=== PATIENT | female | born 1990 | race African-American/Black ===

== ENCOUNTER → 2023-10-16 14:58 | Outpatient (CLI) | payer OTHER, SELFPAY ==
--- NOTE | 2023-10-16 15:16 | US_ITS ---
PROCEDURE INFORMATION: Exam: US Right Breast, Complete US Left Breast, Complete Exam date and time: 10/16/2023 3:16 PM Age: 33 years old Clinical indication: Breast pain; Bilateral; bilat nipple discharge TECHNIQUE: Imaging protocol: Complete ultrasound of all four quadrants of the right breast and the retroareolar regions, including ultrasound of the axilla when performed. Complete ultrasound of all four quadrants of the left breast and the retroareolar regions, including ultrasound of the axilla when performed. COMPARISON: No relevant prior studies available. FINDINGS: Breast: No solid or cystic lesions. Other findings: Sonographic images of both breasts including the retroareolar regions, all 4 quadrants and the axilla do not demonstrate any solid or cystic masses. No architectural distortion or acoustical shadowing. No skin thickening or axillary adenopathy. IMPRESSION: 1. No sonographic evidence of malignancy. Annual mammographic screening is recommended unless otherwise clinically indicated. 2. Further evaluation of nipple discharge if spontaneous and clear and/or hemorrhagic may be obtained with breast MRI ASSESSMENT: BI-RADS Category 1: Negative
== END ==
PROVIDERS: PCP Nurse Practitioner Family; Visit Provider Nurse Practitioner Family
DX: N64.4 Mastodynia (principal); N64.52 Nipple discharge
CPT/HCPCS: 76641

== ENCOUNTER 2024-08-12 10:00 | Emergency (ER) | payer OTHER, SELFPAY ==
--- NOTE | 2024-08-12 09:58 | ECG_ITS ---
APPROVED REPORT Exam: Resting ECG HR:76 bpm ECG Measurements Heart Rate 76 AXES MD 135 P 81 QRSd 86 QRS -71 QT 351 T 75 QTc 382 Conclusion SINUS RHYTHM LEFT AXIS DEVIATION [QRS AXIS < -30] POSSIBLE RIGHT VENTRICULAR CONDUCTION DELAY [RSR (QR) IN V1/V2] No acute ST changes concerning for ischemia Electronically signed by : CHRISTINE GODOY, 08/12/2024 15:32:14
[2024-08-12 10:07] VITALS: BP 164/100; PULSE 66; RESP 14; TEMP 36.6; O2SAT 100; BMI 24.0
--- NOTE | 2024-08-12 10:09 | XR_ITS ---
FINAL REPORT TECHNIQUE: Chest PA & Lateral CLINICAL HISTORY: chest pain/shortness of breath FINDINGS: 2 views of the chest were performed. The heart size is normal. The mediastinum is within normal limits. There is no acute cardiopulmonary process. There are no pleural effusions. There is no pneumothorax. The bony thorax appears intact. IMPRESSION: No acute cardiopulmonary process. Reviewed, Interpreted and Dictated by Stephen Gilman MD Transcribed by Adrienne Tomlinson Authenticated and [facility]
--- NOTE | 2024-08-12 10:13 | ED_ITS ---
Discharge Plan Disposition Patient Disposition: Home, Self-Care Condition: Good Prescriptions Prescriptions: New pantoprazole 40 mg tablet,delayed release (DR/EC) 40 mg PO DAILY Qty: 30 1RF hydroxyzine HCl 25 mg tablet 25 mg PO Q8H PRN (Reason: anxiety) Qty: 20 0RF Referrals Follow up/Referrals: Cee Pineda APRN [Nurse Practitioner] - See instructions Jose Love DO [Staff Physician] - See instructions Provider,Referral, [Primary Care Provider] - See instructions Activity Restrictions/Add. Instructions Additional Instructions/Restrictions: You were evaluated in the emergency department today. Please pick pack worker your prescriptions. Only take the hydroxyzine as needed for panic attacks and severe anxiety. It can make you sleepy. Do not drive or operate heavy machinery while taking it. Take the other medication for acid reflux daily. Follow-up closely with her primary care provider. We are providing you with information for PCP referral. I also recommend close follow-up with behavioral health Clinical Impressions Clinical Impression: Atypical chest pain Stand Alone Forms Stand Alone Forms: Work/School Release Instructions Patient Instructions: DI for Gastroesophageal Reflux Disease (GERD), DI for Atypical Chest Pain, DI for Anxiety -- Adult Print Language Print Language: Lao Discharge ED Provider: Keysha Banks General Chief Complaint: Chest Pain Stated Complaint: Chest Pain Time Seen by Provider: 08/12/24 10:02 Mode of Arrival: Ambulatory Source of Information: Patient Limitations: No Limitations Description of Symptoms (Recalled from ER Triage Doc. by RN): pt c/o R sided chest pain that radiates into her shoulder. pt states the pain feels like pressure and is a 6/10, this began yesterday. pt also reports having SOA for some time, unsure how long. She also reports a productive cough with clear sputum. History of Present Illness HPI narrative: This patient is a 34-year-old female who reports a history of tobacco use and daily alcohol use presenting to the emergency department for evaluation with concern for chest pain and shortness of breath that been going on for months. She states that the pain has been all over the place and does not stay in 1 specific spot. She notes it is pretty much always there but migrates. Nothing seems to bring it on. Nothing makes it better or worse. She also notes feeling of early satiety and thinking that she might have issues with GERD. She denies any history of blood clots, clotting disorders, recent surgeries or travel, immobilization, calf pain or swelling, or any hormonal medication use she also denies any history of cardiopulmonary issues as far she knows. She got frustrated that the symptoms have been persistent for so long today, and she came in for further evaluation and management. Related Data Previous Rx's ?Medication ?Instructions ?Recorded hydroxyzine HCl 25 mg tablet 25 mg PO Q8H PRN anxiety #20 tabs 08/12/24 pantoprazole 40 mg tablet,delayed 40 mg PO DAILY #30 tabs 08/12/24 release Allergies Allergy/AdvReac Type Severity Reaction Status Date / Time No Known Allergies Allergy Verified 08/12/24 10:12 [facility] Disclaimer: The information contained in this section may have been updated after the patient was seen, as this information can be updated by other users. Social History Smoking Status: Current every day smoker alcohol intake: current current occupational status: employed Travel in the last 8 weeks: None ROS Obtained: Yes All systems reviewed & no additional complaints except as documented Physical Exam General General appearance: alert, in no apparent distress and anxious Head Head exam: atraumatic and normocephalic Eye Eye exam: Present normal appearance, PERRL and EOMI ENT ENT exam: Present normal exam, normal oropharynx, mucous membranes moist and normal external ear exam Neck Neck exam: Present normal inspection, full ROM and trachea midline; Absent tenderness Chest Chest inspection: Present normal inspection and symmetric chest wall rise; Absent tenderness Respiratory Respiratory exam: Present normal lung sounds bilaterally; Absent respiratory distress, wheezes, stridor or accessory muscle use Cardiovascular Cardiovascular exam: Present regular rate and normal rhythm Abdominal Exam Abdominal exam: Present soft; Absent distention, tenderness or guarding Extremities Exam Extremities exam: Present normal inspection, full ROM and normal capillary refill; Absent tenderness or edema Back Exam Back exam: Present normal inspection and full ROM; Absent tenderness Neurological Exam Neurological exam: Present alert, oriented X3, CN II-XII intact and normal gait; Absent motor sensory deficit Psychiatric Psychiatric exam: Present anxious Skin Skin exam: Present warm and dry HEART Score HEART Score HEART Score assessment performed?: Yes History (anamnesis): Slightly suspicious ECG: Normal Age: <45 years Risk factors: 1-2 risk factors Troponin: </= normal limit HEART Score: 1 Critical Care Critical Care Time Critical Care Time: No Medical Decision Making Medical Records Medical records reviewed: Yes I reviewed the patient's medical records. Aris Inquiry Pt receiving controlled substance: No Vital Signs Vital Signs: 08/12/24 10:07 08/12/24 10:31 08/12/24 10:39 Temperature 98 F Temperature Source Oral Pulse Rate 68 72 Pulse Rate [Left] 66 Respiratory Rate 14 Blood Pressure 128/105 H 131/96 H Blood Pressure [Right Arm] 164/100 H Blood Pressure Mean [Right Arm] 121 Blood Pressure Source [Right Arm] Automatic Cuff Blood Pressure Position [Right Arm] Sitting 02 Sat by Pulse Oximetry 100 99 98 Oxygen Delivery Method Room Air Room Air Room Air 08/12/24 11:00 Temperature Temperature Source Pulse Rate 54 L Pulse Rate [Left] Respiratory Rate Blood Pressure 149/98 H Blood Pressure [Right Arm] Blood Pressure Mean [Right Arm] Blood Pressure Source [Right Arm] Blood Pressure Position [Right Arm] 02 Sat by Pulse Oximetry 99 Oxygen Delivery Method Room Air Lab Data Labs: Lab Results 08/12/24 10:04: WBC 7.7, RBC 4.55, Hgb 16.1, Hct 48.4 H, MCV 106.4 H, MCH 35.4 H , MCHC 33.3, RDW 13.3, Plt Count 177, MPV 7.5, Neut % (Auto) 59.7, Lymph % (Auto) 31.6, Dawes % (Auto) 6.6, Eos % (Auto) 1.5, Baso % (Auto) 0.7, Neut # (Auto) 4.6, Lymph # (Auto) 2.4, Dawes # (Auto) 0.5, Eos # (Auto) 0.1, Baso # (Auto) 0.1, Sodium 139, Potassium 4.0, Chloride 108 H, Carbon Dioxide 25, Anion Gap 10.0, BUN 9, Creatinine 0.70, Estimated Creat Clear 114, Estimated GFR 96, Est GFR ( Amer) 116, Glucose 92, Calcium 9.1, Total Bilirubin 0.7, AST 33, ALT 22, Alkaline Phosphatase 39, Troponin I < 0.01, Total Protein 6.6, Albumin 4.2, Globulin 2.4, Albumin/Globulin Ratio 1.8, TSH 1.43, Thyroxine (T4) 6.6, Serum HCG, Qual Negative 08/12/24 10:04 08/12/24 10:04 Response Orders (Tests/Meds): ED MEDICATIONS Discontinued Medications Generic Name Dose Route Start Last Admin Trade Name Freq PRN Reason Stop Dose Admin Belladonna Alkaloids 60 ml 08/12/24 10:09 08/12/24 10:17 Belladonna Alkaloids 60 Ml Ml PO 08/12/24 10:10 60 ml ONCE ONE Administration ORDERS Category Date Time Status CXR 2 view (NOT portable) [XR chest 2V] Stat Exams 08/12/24 10:09 Taken CBC w/Auto Diff [Complete Blood Count Auto Diff] Stat Lab 08/12/24 10:04 Completed CMP [Comprehensive Metabolic Panel] Stat Lab 08/12/24 10:04 Completed HIV (1&2) Antibody Rapid Stat Lab 08/12/24 10:04 Received Hep C Ab with Reflex to RNA Stat Lab 08/12/24 10:04 Received Serum [HCG Qualitative, Serum] Stat Lab 08/12/24 10:04 Completed T4 (Thyroxine) Stat Lab 08/12/24 10:04 Completed TSH [Thyroid Stimulating Hormone] Stat Lab 08/12/24 10:04 Completed Trop I [Troponin I] Stat Lab 08/12/24 10:04 Completed Troponin I Q3H Lab 08/12/24 13:15 Ordered Troponin I Q3H Lab 08/12/24 16:15 Ordered ECG Data Tracing #1: Attestation: I reviewed this ECG and interpreted as documented below: ECG Narrative: Normal sinus rhythm with a ventricular rate of 76 bpm. Left axis deviation. No acute ST changes concerning for ischemia ECG initial impression date: 08/12/24 ECG initial impression time: 10:00 [facility] Narrative Medical Decision Narrative: In summary, this patient is a 34-year-old female presenting to the Emergency Department for evaluation of chest pain and shortness of breath that have been migratory for months. Differential diagnoses considered include but are not limited to GERD, anxiety, ACS, pulmonary embolus, dysrhythmia, thyroid abnormalities, COPD, asthma. Ruling out the most morbid conditions drove assessment. It should be noted patient's history includes tobacco and alcohol use which are not at goal therapy. This complicates all aspects of care by increasing patient's risk for morbidity. On exam, the patient is sitting upright in bed in no acute distress with reassuring vital signs. She is PERC negative for pulmonary embolus. Cardiopulmonary exam is reassuring. she is slightly anxious appearing. Workup included CBC, CMP, troponin, TSH, T4, chest x-ray, EKG. EKG obtained does not demonstrate any acute changes concerning for ischemia or dysrhythmia. I independently interpreted x-ray prior to the radiologist read and noted no acute focal consolidation, pneumothorax, or cardiomegaly. Please see their read for final interpretation. Labs were obtained that demonstrated normal thyroid studies, normal CBC, normal chemistry with negative troponin. On reassessment, patient had good improvement after administration of GI cocktail. Vitals remain reassuring on cardiac telemetry, and I feel he excluded acute life-threatening pathology as the cause of the patient's symptoms. Ultimately, feel she is appropriate for discharge home. Advised that she continue follow-up closely outpatient to get into the bottom of her symptoms, but I did prescribe her pantoprazole for GERD as well as hydroxyzine to have as needed for anxiety, as I feel that this is likely causing her symptoms. She was given strict return precautions and was discharged after all questions were answered.
[2024-08-12 10:16] LABS: Albumin Level 4.2 g/dl (3.5-5.0); Chloride 108 mmol/L (98-107)
[2024-08-12 10:17] LABS: Sodium 139 mmol/L (136-145)
[2024-08-12] MEDS: BELLADONNA ALKALOIDS 60 ML ML PO (10:17)
[2024-08-12 10:19] LABS: Alanine Aminotransferase 22 U/L (12-78); Aspartate Amino Transferase 33 U/L (14-36); Blood Urea Nitrogen 9 mg/dl (7-17); Carbon Dioxide 25 mmol/L (22.0-30.0); Creatinine Clearance Estimated 114 mL/min (50-200); Estimated Glomerular Filt Rate 96 ml/min (>60); GFR (African American) 116 ML/MIN (>60)
[2024-08-12 10:20] LABS: Albumin/Globulin Ratio 1.8 (1.1-1.8); Alkaline Phosphatase 39 U/L (38-126); Bilirubin,Total 0.7 mg/dl (0.2-1.3); Calcium 9.1 mg/dl (8.4-10.2); Globulin 2.4 g/dL (1.3-3.2); Glucose 92 mg/dl (74-100); Total Protein,Serum 6.6 g/dl (6.3-8.2)
[2024-08-12 10:21] LABS: Basophils # 0.1 K/mm3 (0-0.2); Basophils % 0.7 % (0.1-2.0); Eosinophils # 0.1 K/mm3 (0.0-0.4); Eosinophils % 1.5 % (0.1-12.0); Hematocrit 48.4 % (37.0-47.0); Hemoglobin 16.1 g/dL (12.2-16.2); Lymphocytes # 2.4 K/mm3 (0.7-4.5); Lymphocytes % 31.6 % (10-50); Mean Corpuscular HGB Conc 33.3 g/dL (31.8-35.4); Mean Corpuscular Hemoglobin 35.4 pg (27.0-31.2); Mean Corpuscular Volume 106.4 fl (81-99); Mean Platelet Volume 7.5 fl (7.4-10.4); Monocytes # 0.5 K/mm3 (0.1-1.0); Monocytes % 6.6 % (1.7-9.3); Neutrophils # 4.6 K/mm3 (1.8-7.8); Neutrophils % 59.7 % (37.0-80.0); Platelet Count 177 K/mm3 (142-424); Red Blood Count 4.55 M/mm3 (4.20-5.40); Red Cell Distribution Width 13.3 % (11.5-17.5); White Blood Count 7.7 K/mm3 (4.8-10.8)
[2024-08-12 10:31] VITALS: BP 128/105; PULSE 68; O2SAT 99
[2024-08-12 10:33] LABS: Troponin I < 0.01 ng/ml (0.00-0.034)
[2024-08-12 10:37] LABS: T4 (Thyroxine) 6.6 ug/dl (5.53-11.0)
[2024-08-12 10:39] VITALS: BP 131/96; PULSE 72; O2SAT 98
[2024-08-12 10:45] LABS: HCG Qualitative, Serum Negative (Negative)
[2024-08-12 10:51] LABS: Thyroid Stimulating Hormone 1.43 uIU/mL (0.465-4.68)
[2024-08-12 11:00] VITALS: BP 149/98; PULSE 54; O2SAT 99
[2024-08-12 11:31] VITALS: BP 149/98; PULSE 67; RESP 14; TEMP 36.6
[2024-08-12 12:54] LABS: HIV (1&2) Antibody Rapid NONREACTIVE (NONREACTIVE)
[2024-08-13 06:25] LABS: HCV Ab Non Reactive (Non Reactive)
== END 2024-08-12 11:37 | disposition home or self-care (01) ==
PROVIDERS: Emergency Provider Emergency Medicine
DX: R07.9 Chest pain, unspecified (principal); R06.02 Shortness of breath; M25.511 Pain in right shoulder; R05.9 Cough, unspecified; F17.210 Nicotine dependence, cigarettes, uncomplicated; F10.20 Alcohol dependence, uncomplicated; R07.89 Other chest pain
CPT/HCPCS: 71046; 80050; 80053; 84436; 84443; 84484; 84703; 85025; 86803; 87389; 93005; 99284

== ENCOUNTER 2024-10-19 07:41 | Outpatient (CLI) | payer OTHER, SELFPAY ==
[2024-10-19 08:25] VITALS: PULSE 77; PULSE 80
[2024-10-19] MEDS: ALBUTEROL 0.083% 2.5 MG/3 ML NEB IH (08:25)
== END 2024-10-19 23:59 | disposition home or self-care (01) ==
PROVIDERS: PCP Nurse Practitioner Family; Visit Provider Nurse Practitioner Family
DX: R06.00 Dyspnea, unspecified (principal)
CPT/HCPCS: 94060; 94640; J7613

== ENCOUNTER 2025-04-05 11:50 | Emergency (ER) | payer OTHER, SELFPAY ==
[2025-04-05 11:50] VITALS: BP 149/94; PULSE 79; RESP 16; RESP 18; TEMP 36.6; O2SAT 100; BMI 21.6
--- NOTE | 2025-04-05 11:51 | ECG_ITS ---
APPROVED REPORT Exam: Resting ECG HR:76 bpm ECG Measurements Heart Rate 76 AXES PA 136 P 75 QRSd 92 QRS 131 QT 389 T 55 QTc 419 Conclusion Sinus rhythm Incomplete right bundle branch block Electronically signed by : LOPEZ HAYWOOD, 04/06/2025 08:12:56
--- NOTE | 2025-04-05 11:55 | PC.NURSE ---
Patients FSBS is 80.
--- NOTE | 2025-04-05 12:00 | PC.NURSE ---
Pt was at [facility] with her 2 small children, children at bedside, provided coloring books and crayons, mother is trying to find someone to come up to be with them.
--- NOTE | 2025-04-05 12:01 | XR_ITS ---
FINAL REPORT CLINICAL HISTORY: cxr, seizure COMPARISON: 08/12/2024 FINDINGS: Film was obtained in lordotic positioning. The heart size is normal. The mediastinum is normal. There is minimal airspace opacity at the left lung base which could represent a small focus of aspiration. There are no pleural effusions. There is no pneumothorax. There is no osseous abnormality. IMPRESSION: Minimal airspace focus left lung base, question aspiration. Follow-up recommended. Reviewed, Interpreted and Dictated by Stephen Gilman MD Transcribed by Eleanor Bowman Authenticated and [facility]
[2025-04-05 12:10] LABS: Basophils # 0.1 K/mm3 (0-0.2); Basophils % 0.8 % (0.1-2.0); Eosinophils # 0.3 Kmm3 (0.0-0.4); Eosinophils % 2.7 % (0.1-12.0); Hematocrit 48.4 % (37.0-47.0); Hemoglobin 16.7 g/dL (12.2-16.2); Immature Granulocytes # 0.03 10^3uL; Immature Granulocytes % 0.3 %; Lymphocytes # 4.7 K/mm3 (0.7-4.5); Lymphocytes % 40.4 % (10-50); Mean Corpuscular HGB Conc 34.5 g/dL (31.8-35.4); Mean Corpuscular Hemoglobin 34.4 pg (27.0-31.2); Mean Corpuscular Volume 99.6 fl (81-99); Mean Platelet Volume 10.1 fl (7.4-10.4); Monocytes # 1.2 K/mm3 (0.1-1.0); Monocytes % 10.6 % (1.7-9.3); Neutrophils # 5.3 K/mm3 (1.8-7.8); Neutrophils % 45.2 % (37.0-80.0); Nucleated Red Blood Cells # 0 10^3/uL; Nucleated Red Blood Cells % 0 %; Platelet Count 239 K/mm3 (142-424); Red Blood Count 4.86 M/mm3 (4.20-5.40); Red Cell Distribution Width 12.7 % (11.5-17.5); Red Cell Distribution Width-SD 47.2 fL; White Blood Count 11.6 K/mm3 (4.8-10.8)
[2025-04-05 12:13] LABS: Albumin Level 4.2 g/dl (3.5-5.0); Chloride 107 mmol/L (98-107); Potassium 3.5 mmoL/L (3.5-5.1); Sodium 139 mmol/L (136-145)
--- NOTE | 2025-04-05 12:13 | HMH.ITSTN ---
Went to the patients room to do a portable CXR, when asking patient if there was any chance that she could be she said yes. ABEL Ybarra was notified and stated she was going to put in a test before we perform the CXR.
[2025-04-05 12:15] LABS: Alanine Aminotransferase 34 U/L (12-78); Aspartate Amino Transferase 42 U/L (14-36); Blood Urea Nitrogen 6 mg/dl (7-17); Creatinine Clearance Estimated 92 mL/min (50-200); Estimated Glomerular Filt Rate 82 ml/min (>60); GFR (African American) 99 ML/MIN (>60)
[2025-04-05 12:16] LABS: Albumin/Globulin Ratio 1.8 (1.1-1.8); Alkaline Phosphatase 40 U/L (38-126); Anion Gap 15.5 mEq/L (5-15); Bilirubin,Total 0.3 mg/dl (0.2-1.3); Calcium 8.7 mg/dl (8.4-10.2); Carbon Dioxide 20 mmol/L (22.0-30.0); Globulin 2.3 g/dL (1.3-3.2); Glucose 77 mg/dl (74-100); Magnesium 1.9 mg/dl (1.6-2.3); Total Protein,Serum 6.5 g/dl (6.3-8.2)
[2025-04-05 12:18] LABS: Activated Partial Thrombo Time 24.6 seconds (22.8-30.6); INR 0.98 (0.9-1.1); Prothrombin Time 10.9 seconds (10.1-12.5)
[2025-04-05 12:28] LABS: Troponin I < 0.01 ng/ml (0.00-0.034)
[2025-04-05] MEDS: levETIRAcetam 1,000 MG in 0.9 % SODIUM CHLORIDE 100 ML 220 MG IV (12:50)
[2025-04-05] MEDS: MVI, ADULT NO.1 WITH VIT K 10 ML, THIAMINE HCL 100 MG, MAGNESIUM SULFATE 2 GM in LACTAT... 500 ML IV (12:50)
--- NOTE | 2025-04-05 13:30 | ED_ITS ---
Discharge Plan Disposition Patient Disposition: Home, Self-Care Prescriptions Prescriptions: New levetiracetam 500 mg tablet 500 mg PO BID Qty: 30 1RF No Action hydroxyzine HCl 25 mg tablet 25 mg PO Q8H PRN (Reason: anxiety) Qty: 90 5RF doxycycline hyclate 100 mg capsule 100 mg PO BID Qty: 20 0RF pantoprazole 40 mg tablet,delayed release (DR/EC) 40 mg PO DAILY Qty: 90 1RF Referrals Follow up/Referrals: Kia Gaona APRN [Primary Care Provider] - See instructions Activity Restrictions/Add. Instructions Additional Instructions/Restrictions: Call your family doctor to establish care for this visit to the emergency department and schedule follow-up within 48 hours to ensure improvement. If you have any worsening of your condition or any other concerning signs or symptoms, return to the emergency department or your primary care doctor for further evaluation. Talk to family doctor about referral to neurology, neurology information here, but you will need a referral prior to scheduling appointment. Keppra twice daily until following up. Seizure precautions - do not do any of these activities until cleared by your neurologist: 1) avoid sleep deprivation 2) avoid open bodies of water and open flames 3) avoid swimming alone 4) take showers, do not take baths 5) avoid any situation where loss of consciousness may predispose to injury or 6) avoid driving Clinical Impressions Clinical Impression: Seizure-like activity Instructions Patient Instructions: DI for Seizure Disorder -- Adult, DI for Seizure (Not Epilepsy/Seizure Disorder), DI for Seizure Disorder -- Child Print Language Print Language: Mohawk Discharge ED Provider: Bryant Parker General Adult HPI General Chief complaint: Seizure Stated complaint: Seizure Time Seen by Provider: 04/05/25 12:01 Mode of Arrival: EMS Source of Information: EMS Description of Symptoms (Recalled from ER Triage Doc. by RN): Pt experienced an unwitnessed seizure while at [facility] with her 2 children. Pt states she has a hx of seziures back in 2006, no daily medications. Pt is postictal at this time,seizure pads in place. Dr Parker at bedside History of Present Illness HPI narrative: Please note that above description of symptoms, in this electronic medical record under categorization of recalled from ER triage doctor by RN are reflective of an initial nursing assessment, however, is not reflective of my full history and physical exam that was personally taken and clarified. Consequentially, this preceding description of symptoms, which may include the patient's categorized chief complaint in the EMR, do not reflect my personal clinical impression, and the ultimate description of history of present illness and patient stated complaints should be deferred to this section of the note. Unless stated otherwise or congruent with this section of the note, additional signs, symptoms, or incongruence should be interpreted as inaccurate with my clinical impression. Related Data Previous Rx's ?Medication ?Instructions ?Recorded hydroxyzine HCl 25 mg tablet 25 mg PO Q8H PRN anxiety #90 tabs 09/13/24 pantoprazole 40 mg tablet,delayed 40 mg PO DAILY #90 tabs 01/10/25 release doxycycline hyclate 100 mg capsule 100 mg PO BID #20 caps 04/05/25 levetiracetam 500 mg tablet 500 mg PO BID #30 tabs 04/05/25 Allergies Allergy/AdvReac Type Severity Reaction Status Date / Time No Known Allergies Allergy Verified 04/05/25 10:20 [facility] Disclaimer: The information contained in this section may have been updated after the patient was seen, as this information can be updated by other users. Medical History Dyspnea Atypical chest pain GERD (gastroesophageal reflux disease) Surgical History History of dental surgery History of Social History Smoking Status: Current every day smoker tobacco type: cigarettes alcohol intake: current substance use type: denies use current occupational status: unemployed Travel in the last 8 weeks?: None Have you lived/traveled outside [place] in past 30 days?: No Contact w/someone who lives/traveled outside US past 30 days?: No Exposure to someone with infectious disease in past 14 days?: No Do you have a fever (greater than 100.4 F or 38 C)?: No Have you tested positive for COVID-19?: No Exposed to someone with COVID-19 in past 14 days?: No Do you have a sore throat?: No Do you have a cough?: No Do you have any weakness?: No Do you have any diarrhea?: No Are you experiencing any unusual bleeding?: No Do you have any muscle aches/pain?: No Do you have any abdominal pain?: No Are you experiencing loss of taste or smell?: No Other Medical History Have you received the Pneumonia Vaccine: No ROS Obtained: Yes All systems reviewed & no additional complaints except as documented Physical Exam General General appearance: alert Head Head exam: atraumatic and normocephalic Eye Eye exam: Present normal appearance, PERRL and EOMI Neck Neck exam: Present normal inspection, full ROM and trachea midline Respiratory Respiratory exam: Absent respiratory distress, wheezes, stridor, accessory muscle use or prolonged expiratory phase Cardiovascular Cardiovascular exam: Present regular rate, normal rhythm and other (Pulses equal symmetric in upper and lower extremities) Abdominal Exam Abdominal exam: Present soft; Absent distention, tenderness or pulsatile mass Extremities Exam Extremities exam: Absent edema Neurological Exam Neurological exam: Present alert, oriented X3 and CN II-XII intact; Absent motor sensory deficit Skin Skin exam: Present warm and dry; Absent diaphoresis or erythema Medical Decision Making Medical Records Medical records reviewed: Yes I reviewed the patient's medical records. Screening: Per USPSTF and CDC recommendations, given the prevalence of disease in our region, it is our hospital?s policy to screen for HIV and viral Hepatitis for all patients aged 18 and over and those with ongoing risk factors. Aris Inquiry Pt receiving controlled substance: No Aris was queried for this patient: No Vital Signs: 04/05/25 11:50 04/05/25 11:50 Temperature 98 F 98 F Temperature Source Oral Oral Pulse Rate 79 Pulse Rate [Left] 79 Respiratory Rate 16 18 Blood Pressure 149/94 H Blood Pressure [Right Arm] 149/94 H Blood Pressure Mean [Right Arm] 112 Blood Pressure Source Automatic Cuff Blood Pressure Source [Right Arm] Automatic Cuff Blood Pressure Position Sitting Blood Pressure Position [Right Arm] Sitting 02 Sat by Pulse Oximetry 100 100 Oxygen Delivery Method Room Air Room Air Lab Data Lab Results 04/05/25 11:52: WBC 11.6 H, RBC 4.86, Hgb 16.7 H, Hct 48.4 H, MCV 99.6 H, MCH 34.4 H, MCHC 34.5, RDW 12.7, Plt Count 239, MPV 10.1, Neut % (Auto) 45.2, Lymph % (Auto) 40.4, Mcpherson % (Auto) 10.6 H, Eos % (Auto) 2.7, Baso % (Auto) 0.8, Neut # (Auto) 5.3, Lymph # (Auto) 4.7 H, Mcpherson # (Auto) 1.2 H, Eos # (Auto) 0.3, Baso # (Auto) 0.1, PT 10.9, INR 0.98, APTT 24.6, Sodium 139, Potassium 3.5, Chloride 107, Carbon Dioxide 20 L, Anion Gap 15.5 H, BUN 6 L, Creatinine 0.80, Estimated Creat Clear 92, Estimated GFR 82, Est GFR ( Amer) 99, Glucose 77, Calcium 8.7, Magnesium 1.9, Total Bilirubin 0.3, AST 42 H, ALT 34, Alkaline Phosphatase 40, Troponin I < 0.01, Total Protein 6.5, Albumin 4.2, Globulin 2.3, Albumin/Globulin Ratio 1.8, Serum HCG, Qual Negative 04/05/25 13:41: Urine Color Yellow, Urine Appearance Clear, Urine pH 8.0, Ur Specific [place] 1.010, Urine Protein Negative, Urine Glucose (UA) Negative, Urine Ketones Negative, Urine Blood Negative, Urine Nitrate Negative, Urine Bilirubin Negative, Urine Urobilinogen 0.2, Ur Leukocyte Esterase Negative, Urine HCG, Qual Negative, Urine Opiates Screen Negative, Urine Methadone Screen Negative, Ur Barbituates Screen Negative, Ur Phencyclidine Scrn Negative, Ur Amphetamines Screen Negative, U Benzodiazepines Scrn Negative, Urine Cocaine Screen Negative, U Marijuana (THC) Screen Negative 04/05/25 11:52 04/05/25 11:52 Orders (Tests/Meds): ED MEDICATIONS Discontinued Medications Generic Name Dose Route Start Last Admin Trade Name Freq PRN Reason Stop Dose Admin Multivitamins 10 ml/ Thiamine 1,015 mls @ 500 mls/hr 04/05/25 12:01 04/05/25 12:50 HCl 100 mg/ Magnesium Sulfate IV 04/05/25 14:02 500 mls/hr 2 gm/ Lactated Ringer's .Q2H2M ONE Administration Levetiracetam 1,000 mg/ Sodium 110 mls @ 220 mls/hr 04/05/25 12:01 04/05/25 12:50 Chloride IV 04/05/25 12:02 220 mls/hr ONCE ONE Administration ORDERS Category Date Time Status XR chest portable Stat Exams 04/05/25 12:01 Taken Complete Blood Count Auto Diff Stat Lab 04/05/25 11:52 Completed Comprehensive Metabolic Panel Stat Lab 04/05/25 11:52 Completed Drug Screen,Urine Stat Lab 04/05/25 13:41 Completed Ethyl Alcohol Stat Lab 04/05/25 11:52 Received Magnesium Stat Lab 04/05/25 11:52 Completed PT INR [Prothrombin Time INR] Stat Lab 04/05/25 11:52 Completed PTT [Activated Partial Thrombo Time] Stat Lab 04/05/25 11:52 Completed Serum [HCG Qualitative, Serum] Stat Lab 04/05/25 11:52 Completed Troponin I Q3H Lab 04/05/25 15:15 Ordered Troponin I Q3H Lab 04/05/25 18:15 Ordered Troponin I Stat Lab 04/05/25 11:52 Completed Urinalysis and Microscopic Stat Lab 04/05/25 13:41 Results Urine , HCG Qual. Stat Lab 04/05/25 13:41 Completed Medical Decision Narrative: 34-year-old female presenting with seizure-like activity. She states she has a history of epilepsy in the past, has not had a seizure since 2006. Denies medication changes, drug use, but does drink 6-12 beers per day. Last drink was last night, does not feel that she is withdrawing. Today, EMS was called out as she was in [facility], had seizure-like activity, fell to the floor. Was postictal when they got there, normal glucose, brought to the emergency department. Patient remembers getting her kids ready earlier this morning, does not remember being at the store at all. No current complaints. History was obtained via conversation with patient and EMS. On arrival, patient hemodynamically stable, alert, oriented x4, appropriate, GCS 15, moving all extremities spontaneously, pupils equal and reactive to light. Full physical exam performed and significant for well-appearing female no acute distress, but stating she feels foggy, she is neurologically intact including cranial nerves, cerebellar, motor and sensory exams. Cardiopulmonary exam normal. Abdomen soft, nontender, nondistended. Lungs are clear bilaterally. Differential includes breakthrough seizure, epileptic seizure, nonepileptic seizure, among others. Patient placed on continuous cardiac monitoring and continuous pulse ox with initial blood pressure 149/94, heart rate 79, saturation 100% on room air. Independent interpretation of EKG shows sinus rhythm 76 bpm with HI interval 136, QRS 92, QTc 419. Patient was given fluids, Keppra for symptomatic management and correction of underlying abnormalities. Workup independently interpreted and significant for leukocytosis 11.6 with elevated monocytes relatively and lymphocytes. Chemistry nonactionable with negative troponin. CT head considered, patient NIHSS 0, alert and oriented, no headache, low likelihood for any acute intracranial abnormalities. UDS negative. On reevaluation, patient resting comfortably. Given patient presentation, workup, history, this most likely represents breakthrough seizure-like activity versus pseudoseizure. I feel this is outside the window of alcohol withdrawal seizure. Patient also not exhibiting CIWA positive abnormalities on arrival. UDS negative, unlikely to be intoxicant. Because patient at baseline without signs or symptoms of clinical decompensation, deemed appropriate for discharge. Results were relayed to patient who voiced understanding and were agreeable to outpatient management and follow up. I discussed my clinical impression with patient and answered all questions. At this time, the evidence for any other entities in the differential is insufficient to warrant any further testing or ED observation. This was explained as well. Advisory was given that persistent or worsening symptoms require further evaluation. I confirmed the understanding of this discussion. Instrumentation Technologist disclaimer Much of this encounter note is an electronic airline customer service agent spoken language to printed text. Electronic airline customer service agent of the spoken language may permit errors. Although I have reviewed the note, some errors may still exist. Critical Care Critical Care Time Critical Care Time: No
[2025-04-05 13:36] LABS: HCG Qualitative, Serum Negative (Negative)
[2025-04-05 13:48] LABS: Microscopic, Urine URINE MICROSCOPIC (MICROSCOPIC)
[2025-04-05 13:49] LABS: Appearance,Urine CLEAR (Clear); Bilirubin,Urine Negative (Negative); Blood, Urine Negative (Negative); Color,Urine YELLOW (Yellow); Glucose,Urine (UA) Negative (Negative); Ketones,Urine Negative (Negative); Leukocyte Esterase,Urine Negative (Negative); Nitrate,Urine Negative (Negative); Protein,Urine Negative (Negative); Urobilinogen,Urine 0.2 EU/dl (0.2)
[2025-04-05 13:51] LABS: Urine Pregnancy, HCG Qual. Negative (Negative)
[2025-04-05 14:03] LABS: Amphetamine/Metha Screen,Urine Negative ng/ml (<1000); Barbiturates Screen,Urine Negative ng/ml (<200)
[2025-04-05 14:04] LABS: Benzodiazepines Screen,Urine Negative ng/ml (<200); Cannabinoid Screen,Urine Negative ng/ml (<50)
[2025-04-05 14:05] LABS: Cocaine Screen,Urine Negative ng/ml (<300)
[2025-04-05 14:06] LABS: Methadone Screen,Urine Negative ng/ml (<300); Opiate Screen,Urine Negative ng/ml (<300)
[2025-04-05 14:07] LABS: Phencyclidine Screen,Urine Negative ng/ml (<25)
[2025-04-05 14:17] LABS: Bacteria,Urine Trace /lpf; Squamous Epithelial Cell,Urine Occasional #/hpf (0-5)
[2025-04-05 14:19] LABS: Ethyl Alcohol < 10 mg/dl (0-10)
[2025-04-05 14:21] VITALS: BP 132/83; PULSE 65; RESP 16; TEMP 36.7; O2SAT 99
[2025-04-05 14:23] VITALS: BP 132/83; RESP 14
[2025-04-05 14:31] VITALS: BP 111/78; RESP 14
--- NOTE | 2025-04-05 14:34 | PC.NURSE ---
Pt spouse has to go get car seats from pt car at [employer], leaving pt hooked up to iv until he returns.
== END 2025-04-05 15:12 | disposition home or self-care (01) ==
PROVIDERS: Emergency Provider Emergency Medicine; PCP Nurse Practitioner Family
DX: R56.9 Unspecified convulsions (principal); F10.139 Alcohol abuse with withdrawal, unspecified; F17.210 Nicotine dependence, cigarettes, uncomplicated
CPT/HCPCS: 71045; 80053; 80307; 80320; 81001; 81025; 83735; 84484; 84703; 85025; 85610; 85730; 93005; 96365; 96366; 99284; J1953; J3411; J3475; J7120

== ENCOUNTER 2025-04-18 13:43 | Outpatient (CLI) | payer OTHER, SELFPAY ==
--- NOTE | 2025-04-18 13:45 | XR_ITS ---
FINAL REPORT CLINICAL HISTORY: abnormal CXR on 04/05/25 COMPARISON: 04/05/2025 FINDINGS: CHEST 2 VIEWS PA AND LATERAL The heart is normal in size. The mediastinum is unremarkable. There is minimal opacity at the left base which is stable, probably due to scarring. The right lung is clear. There is no pneumothorax. IMPRESSION: No acute process. Reviewed, Interpreted and Dictated by Stephen Gilman MD Transcribed by Esthela Willis Authenticated and [facility]
[2025-04-18 18:17] LABS: 25-OH Vitamin D, Total 62.7 ng/mL (30-100)
[2025-04-18 18:34] LABS: Ferritin 48.6 ng/ml (6.24-137)
[2025-04-18 18:50] LABS: Vitamin B12 > 1000 pg/mL (239-931)
[2025-04-18 19:12] LABS: Iron 107 ug/dL (37-170)
[2025-04-18 19:27] LABS: Total Iron Binding Capacity 299 ug/dL (265-497)
[2025-04-23 09:50] LABS: Lyme B. burgdorferi PCR Blood Negative (Negative)
[2025-04-24 07:09] LABS: F026-IgE Pork 0.24 kU/L (Class 0/I); F027-IgE Beef 0.46 kU/L (Class I); F088-IgE Lamb 0.39 kU/L (Class I); Immunoglobulin E, Total 72 IU/mL (6-495); O215-IgE Alpha-Gal 0.96 kU/L (Class II)
[2025-04-25 06:09] LABS: Levetiracetam (Keppra) 7.5 ug/mL (10.0-40.0)
== END 2025-04-18 23:59 | disposition home or self-care (01) ==
LOC: RAD 13:44
PROVIDERS: PCP Nurse Practitioner Family; Visit Provider Nurse Practitioner Family
DX: T17.908A Unspecified foreign body in respiratory tract, part unspecified causing other injury, initial encounter (principal); R56.9 Unspecified convulsions; R53.83 Other fatigue; R91.8 Other nonspecific abnormal finding of lung field; W57.XXXA Bitten or stung by nonvenomous insect and other nonvenomous arthropods, initial encounter
CPT/HCPCS: 71046; 80177; 82306; 82607; 82728; 82785; 83540; 83550; 86003; 86008; 87476

== ENCOUNTER 2025-05-03 09:46 | Outpatient (CLI) | payer OTHER, SELFPAY ==
[2025-05-03 10:35] VITALS: PULSE 59; PULSE 65
[2025-05-03] MEDS: ALBUTEROL 0.083% 2.5 MG/3 ML NEB IH (10:35)
== END 2025-05-03 23:59 | disposition home or self-care (01) ==
LOC: RT 09:47
PROVIDERS: PCP Nurse Practitioner Family; Visit Provider Internal Medicine Pulmonary Disease
DX: J44.9 Chronic obstructive pulmonary disease, unspecified (principal)
CPT/HCPCS: 94060; 94618; 94640; 94726; 94729

== ENCOUNTER 2025-05-05 09:48 | Outpatient (CLI) | payer OTHER, SELFPAY ==
[2025-05-08 16:09] LABS: Levetiracetam (Keppra) 11.5 ug/mL (10.0-40.0)
== END 2025-05-05 23:59 | disposition home or self-care (01) ==
LOC: LAB.DROPOF 05-06 11:06
PROVIDERS: PCP Nurse Practitioner Family; Visit Provider Nurse Practitioner Family
DX: R56.9 Unspecified convulsions (principal); Z91.018 Allergy to other foods
CPT/HCPCS: 80177